=== PATIENT | female | born 1980 | race African-American/Black ===

== ENCOUNTER 2023-03-22 17:46 | Emergency (ER) | payer BC, SELFPAY ==
[2023-03-22] VITALS (11 sets, daily range): BP systolic 133–153; BP diastolic 74–101; PULSE 80–89; RESP 18–20; TEMP 36–36.1; O2SAT 98–100
--- NOTE | ~2023-03-22 | CT_ITS ---
EXAMINATION: CT diagnostic chest w con DATE: 03/22/2023 21:15 INDICATION: 2 cm nodular opacity left upper lung zone on CXR TECHNIQUE: Computed tomography (CT) of the chest was performed with 100 mL Omnipaque-350 intravenous contrast. Additional 3D reconstructions utilizing coronal maximum intensity projection (MIP) were per formed. Automated exposure control and iterative reconstruction technique were employed. The dose-america gth product was 781.28 mGy-cm. COMPARISON: None FINDINGS: 2.3 x 2.0 cm spiculated nodule at the apical segment of the left upper lobe nodule. A small contrast enhanced pulmonary vessel traverses without evident architectural distortion through the center of th e nodule which would argue against metastatic disease. There are additional smaller nodular opacities in the posterior left upper lobe, in the infrahilar left lower lobe, in the right middle lobe and at the posterior sulcus of the right lower lobe. There is bilateral hilar lymphadenopathy and more prom inent mediastinal lymphadenopathy, the largest a 3.2 x 2.2 cm lymph node at the AP window and a 4.5 x 2.9 cm conglomeration of subcarinal lymph nodes. While potentially reactive the size of these lymph nodes also raises the possibility of lymphoma, malignancy with metastatic disease or sarcoidosis. No pleural effusion. Heart size is normal. No pericardial effusion. Thoracic aorta is normal in caliber with no dissection. There is periportal lymphadenopathy. Visualized upper abdomen is otherwise unrema rkable. Mild thoracic spondylosis. IMPRESSION: 1. Multiple pulmonary nodules, the largest at the left apex corresponding to the nodule identified on prior chest radiograph but with multiple additional smaller nodules in the left upper, left lower, r ight lower and right middle lobes. There is also bilateral hilar, mediastinal and periportal lymphade nopathy, particularly in the mediastinum larger than would typically be seen with reactive lymphadeno samantha. Differential would include lymphoma, sarcoidosis, pneumonia or other metastatic disease. Reviewed, dictated and finalized at location A. ONETTE PERFORMER IMPRESSION: 1. Multiple pulmonary nodules, the largest at the left apex corresponding to th e nodule identified on prior chest radiograph but with multiple additional smal ler nodules in the left upper, left lower, right lower and right middle lobes. There is also bilateral hilar, mediastinal and periportal lymphadenopathy, part icularly in the mediastinum larger than would typically be seen with reactive l ymphadenopathy. Differential would include lymphoma, sarcoidosis, pneumonia or other metastatic disease.
--- NOTE | ~2023-03-22 | XR_ITS ---
EXAMINATION: XR chest 2V DATE: 03/22/2023 19:51 INDICATION: Shortness of breath TECHNIQUE: PA and lateral views of the chest were obtained. COMPARISON: None FINDINGS: Subtle approximately 2 cm nodular opacity at the left upper lung zone. No other airspace opacities, p ulmonary edema, pleural effusion or pneumothorax. The cardiomediastinal silhouette is normal. Mild th oracic spondylosis. IMPRESSION: 1. Indeterminate 2 cm nodular opacity left upper lung zone. Recommend chest CT for further evaluation . Reviewed, dictated and finalized at location A. [employer] IMPRESSION: 1. Indeterminate 2 cm nodular opacity left upper lung zone. Recommend chest CT for further evaluation.
--- NOTE | 2023-03-22 17:48 | ECG_ITS ---
Measurements Intervals [place] Rate: 80 P: 29 [place]: 197 QRS: 44 QRSD: 92 T: 28 QT: 363 QTc: 420 Interpretive Statements SINUS RHYTHM BASELINE ARTIFACT NORMAL ECG NO PREVIOUS ECG AVAILABLE FOR COMPARISON Electronically Signed On 03-23-2023 13:54:58 DIGITAL CAMPAIGN SPECIALIST by Trace Ng M.D.
[2023-03-22 19:59] LABS: Basophils Percent Auto 0.6 % (0.2-1.2); Eosinophils Absolute Auto 0.5 K/mm3 (0-0.3); Hematocrit 38.2 % (37.0-47.0); Hemoglobin 12.2 g/dL (12.0-15.0); Immature Granulocyte Absolute 0.02 K/mm3 (0.00-0.031); Immature Granulocyte Percent A 0.4 % (0-0.5); Lymphocytes Absolute Auto 1.24 K/mm3 (0.9-3.2); Lymphocytes Percent Auto 24.3 % (18.3-44.2); Mean Corpuscular HGB Conc 31.9 g/dl (32-36); Mean Corpuscular Hemoglobin 26.6 pg (26-34); Mean Corpuscular Volume 83.4 fl (80-100); Mean Platelet Volume 10.5 fl (7.4-10.4); Monocytes Absolute Auto 0.3 K/mm3 (0.1-0.6); Monocytes Percent Auto 6.1 % (2.6-8.5); Neutrophils Percent Auto 59.6 % (45.5-73.1); Platelet Count Result 302 k/mm3 (150-375); Red Blood Count 4.58 M/mm3 (4.2-5.4); Red Cell Distribution Width 14.6 % (11.5-14.5); White Blood Count 5.1 K/mm3 (4.5-10.0)
[2023-03-22 20:11] LABS: Alanine Aminotransferase 26 U/L (6-35); Albumin Level 4.1 g/dL (3.5-5.1); Alkaline Phosphatase 94 U/L (38-126); Anion Gap 11 mmol/L (8-16); Aspartate Amino Transferase 27 U/L (14-36); Bilirubin,Total 0.5 mg/dL (0.2-1.3); Blood Urea Nitrogen 8 mg/dL (7-17); Calcium 9.1 mg/dL (8.4-10.2); Carbon Dioxide 23 mmol/L (22-30); Chloride 104 mmol/L (98-107); Estimated CRCL calculation 115 ml/min; Estimated Glomerular Filt Rate > 60; Glucose 93 mg/dL (65-110); Potassium 3.3 mmol/L (3.4-5.0); Sodium 138 mmol/L (137-145)
--- NOTE | 2023-03-22 20:46 | ED.SOB ---
HPI - SOB/Dyspnea General Chief Complaint: Shortness of Breath/Dyspnea Stated Complaint: SOB Time Seen by Provider: 03/22/23 20:28 Source: patient Limitations: no limitations History of Present Illness HPI Narrative: This is a 43 yo female with PMH asthma who presents with complaint of shortness of breath. She states this has been persistent both with exertion and at rest since being diagnosed with a pneumonia on 02/10/23. This was the same day as she received her flu vaccine. Pneumonia diagnosis was reportedly clinical based on history and physical exam, not by chest xray. She completed a course of azithromycin but continues to have shortness of breath and a cough. She states it is productive of yellow mucous but otherwise denies hemoptysis or fever. She has been using nebulized albuterol /ipratropium treatments. She states she has had 4 episodes of pneumonia, one of which was related to covid. For this, she sees a customs opener verifier packer (Delonte Montero) and a medical research associate (Guadalupe). She is on an antihypertensive that contains a diuretic. Not on hormones but does have a coppre Paraguard in place. No recent travel or surgeries. No unilateral lower extremity swelling. Related Data Allergies Allergy/AdvReac Type Severity Reaction Status Date / Time No Known Allergies Allergy Verified 03/22/23 22:07 [facility] Past Medical History Medical History (Updated 03/23/23 @ 00:30 by Annemarie Max MD) COVID Hypertension Influenza vaccination given 02/10/23 Pneumonia Social History Social History (Updated 03/23/23 @ 00:30 by Annemarie Max MD) Smoking status: Former smoker Exam Const: General: healthy appearing, no acute distress and alert; No confusion, diaphoretic or ill appearing Nutritional Appearance: well nourished and obese Orientation/consciousness: patient oriented x3 Limitations: no limitations HENMT: Head: normal to inspection, no contusions, no hematomas and no lacerations Other: gross auditory acuity intact ; no lupus pernio or other facial rash Eyes: Conjunctivae: conjunctivae normal Direct Ophthalmoscopy: no photophobia Neck: Neck: normal visual inspection Chest: Chest palpation & inspection: normal inspection of the chest and no tenderness Resp: Effort & Inspection: normal respiratory effort, not labored, no retractions, not tachypneic and no use of accessory muscles Auscultation: clear to auscultation bilaterally, no crackles, no rales, no rhonchi and no wheezes Other: good air movement throughout all lung andrew; frequently coughing with deep inspiration but no wheezes appreciated during cough episodes either Cardio: Rate: regular rate, not bradycardic and not tachycardic Rhythm: regular rhythm Heart sounds: no murmurs GI: Inspection: non-distended GI Palp: Yes Soft to palpation, No Tenderness to palpation present (GI) and No Guarding due to palpation present (GI) Skin: General skin exam: normal color, no jaundice and no pallor Neuro: General: patient oriented x3, moves all extremities, no meningeal signs and no focal motor deficits Speech: normal speech Extrem: General: normal to inspection Other: trace bilateral lower extremity edema but legs grossly symmetric; no nodules on palpation of b/l LEs Psych: Mental Status: mental status grossly normal Affect: normal affect Attitude: cooperative Course Vital Signs Vital signs: Vital Signs Temperature 97 F L 03/22/23 17:48 Pulse Rate 89 03/22/23 17:48 Respiratory Rate 20 03/22/23 17:48 Blood Pressure 148/82 H 03/22/23 17:48 Pulse Oximetry 100 03/22/23 17:48 Oxygen Delivery Room Air 03/22/23 17:48 Temperature 96.8 F L 03/22/23 19:45 Pulse Rate 80 03/22/23 20:39 Respiratory Rate 18 03/22/23 20:40 Blood Pressure 143/74 H 03/22/23 21:01 Pulse Oximetry 100 03/22/23 21:01 Oxygen Delivery Room Air 03/22/23 20:38 MDM - SOB/Dyspnea MDM Narrative Medical decision making narrativ
[2023-03-22 21:53] LABS: Influenza A QL RT-PCR Negative (Negative); Influenza B QL RT-PCR Negative (Negative); SARS-CoV-2 RNA PCR Negative (Negative)
[2023-03-22] MEDS: POTASSIUM PHOS/SODIUM PHOS 250 MG TABLET PO (22:40)
== END 2023-03-22 22:50 | disposition home or self-care (01) ==
PROVIDERS: Emergency Provider Student in an Organized Health Care Education/Training Program
DX: R05.3 Chronic cough (principal); E87.6 Hypokalemia; Z20.822 Contact with and (suspected) exposure to COVID-19; J45.909 Unspecified asthma, uncomplicated; I10 Essential (primary) hypertension; Z87.891 Personal history of nicotine dependence; Z86.16 Personal history of COVID-19; Z87.01 Personal history of pneumonia (recurrent); R91.8 Other nonspecific abnormal finding of lung field
CPT/HCPCS: 36415; 71046; 71260; 80053; 85025; 87636; 93005; 99284; A9270; Q9967

== ENCOUNTER 2024-03-17 08:02 | Emergency (ER) | payer BC, SELFPAY ==
[2024-03-17 08:27] VITALS: BP 139/91; PULSE 86; RESP 18; TEMP 36.8; O2SAT 97
[2024-03-17 08:31] VITALS: BP 145/104; PULSE 77; RESP 20; O2SAT 96
[2024-03-17 08:46] VITALS: BP 144/82; PULSE 78; RESP 18; O2SAT 100
[2024-03-17 09:31] VITALS: BP 142/104; PULSE 83; RESP 18; O2SAT 98
--- NOTE | 2024-03-17 09:53 | ECG_ITS ---
Test Date: 2024-03-17 10:13:29 Measurements Intervals [place] Rate: 81 P: 27 HI: 187 QRS: 15 QRSD: 85 T: 20 QT: 354 QTc: 413 Interpretive Statements SINUS RHYTHM POSSIBLE ANTERIOR MYOCARDIAL INFARCTION , PROBABLY OLD CONSIDER INFERIOR INFARCT, AGE INDETERMINATE BORDERLINE ST ABNORMALITY- LATERAL LEADS ABNORMAL ECG No previous ECG available for comparison Electronically Signed On 03-17-2024 12:00:32 VITICULTURIST by Anup Emerson D.O.
--- NOTE | 2024-03-17 10:00 | ED.HA ---
HPI - Headache General Chief Complaint: Headache Stated Complaint: headache Time Seen by Provider: 03/17/24 08:55 History of Present Illness HPI Narrative: Patient is a 44-year-old female who presents to the ER with a headache that started about a week ago. 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 Patient went to [place] [facility] a couple days ago where they did a head CT. The provider at the ER told her it was normal. She reports the headache continues. It feels like pulsating on the top of my head and travels down the sides. Patient reports she is experiencing fluid shifts and popping in her ears. She reports she has been taking a decongestant for the last 2 days, which has given her some relief. When she talked to her primary care provider this morning they advised her to come in for evaluation to make sure the sarcoidosis has not traveled to her head. Patient endorses a history of congestive failure and high blood pressure. She denies any history of seasonal allergies, recent fevers, other signs/symptoms of illness. Related Data Allergies Allergy/AdvReac Type Severity Reaction Status Date / Time lisinopril Allergy Swelling Verified 03/17/24 08:35 nifedipine Allergy Swelling Verified 03/17/24 08:35 Review of Systems Review of Systems: All systems reviewed & are unremarkable except as noted in HPI and below PMFSH Past Medical History Medical History COVID Hypertension Influenza vaccination given 02/10/23 Pneumonia Social History Social History Smoking status: Former smoker Exam Narrative: GENERAL: Well appearing, well-nourished, non-toxic, in no acute distress. HEAD: Normocephalic, atraumatic. Red, swollen nasal turbinates, no excessive drainage or mucous. NECK: Supple. No adenopathy, no masses. RESPIRATORY: Airway patent, respirations nonlabored. Clear to auscultation bilaterally, no rales, rhonchi, wheezing. CARDIOVASCULAR: Regular rate and rhythm without murmurs, rubs, or gallops. Peripheral pulses 2+ and equal bilaterally. ABDOMINAL: Soft, nontender, nondistended, no hepatosplenomegaly. Normoactive BS. MUSCULOSKELETAL: Moves all extremities. Strength/ROM intact without gross deformities. SKIN: Warm, dry, normal color. No rashes. NEURO: A&O X3. Speech clear. Cranial nerves II-XII grossly intact. No ataxic movements. PSYCHIATRIC: Appropriate mood and affect. Normal interaction. Course Vital Signs Vital signs: Vital Signs Temperature 36.8 C 03/17/24 08:27 Pulse Rate 86 03/17/24 08:27 Respiratory Rate 18 03/17/24 08:27 Blood Pressure 139/91 H 03/17/24 08:27 Pulse Oximetry 97 03/17/24 08:27 Oxygen Delivery Room Air 03/17/24 08:27 Temperature 36.8 C 03/17/24 08:27 Pulse Rate 83 03/17/24 09:31 Respiratory Rate 18 03/17/24 09:31 Blood Pressure 142/104 H 03/17/24 09:31 Pulse Oximetry 98 03/17/24 09:31 Oxygen Delivery Room Air 03/17/24 08:27 MDM - Headache MDM Narrative Medical decision making narrative: Patient is a 44-year-old female who presents to the ER with a headache that started about a week ago. 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 Patient went to [place] [facility] a couple days ago where they did a head CT. The provider at the ER told her it was normal. She reports the headache continues. It feels like pulsating on the top of my head and travels down the sides. Patient reports she is experiencing fluid shifts and popping in her ears. She reports she has been taking a decongestant for the last 2 days, which has given her some relief. When she talked to her primary care provider this morning they advised her to come in for evaluation to make sure the sarcoidosis has not traveled to her head. Patient endorses a history of congestive failure and high blood pressure. She denies any history of seasonal allergies, recent fevers, other signs/symptoms of illness. 1140- Spoke with patient's primary care provider knows patient well. She reports she will try to see patient in her office this week. PCP reports she is not passing patient's right dose needs to be increased this time. She reports if we deem it necessary we can put pt on an abx for a sinus infection. otherwise she has no recommendations for changes in plan of care at this time. Labs Ordered: CBC, CMP Imaging Ordered: None, as pt had a head CT within the past week Results: All bloodwork results were unremarkable besides mild dehydration, 1L NS IV bolus given Diagnosis: headache, sinus infection Consults: PCP Patient Education/Shared MDM: Results of blood work shared patient. Patient reports relief of symptoms after Toradol, NS bolus, and Solu-Medrol administration. Plan to treat patient outpatient for a sinus infection per her request. Patient should follow-up with her primary care provider this week. No adjustments will be made to patient's baseline steroid use. Patient and her family verbalized understanding and are in agreement with plan for discharge home. Differential Diagnosis Differential diagnosis: Likely migraine, tension headache, subarachnoid hemorrhage, headache and sinusitis Lab Data Attestation: I reviewed the patient's lab results. 03/17/24 10:46 03/17/24 10:46 Labs: Lab Results 03/17/24 Range/Units 10:46 WBC 9.5 (4.5-10.0) K/mm3 RBC 5.08 (4.2-5.4) M/mm3 Hgb 13.4 (12.0-15.0) g/dL Hct 42.6 (37.0-47.0) % MCV 83.9 (80-100) fl MCH 26.4 (26-34) pg MCHC 31.5 L (32-36) g/dl RDW 12.9 (11.5-14.5) % Plt Count 288 (150-375) k/mm3 MPV 10.7 H (7.4-10.4) fl Immature Gran % (Auto) 0.4 (0-0.5) % Neut % (Auto) 77.5 H (45.5-73.1) % Lymph % (Auto) 16.7 L (18.3-44.2) % [place] % (Auto) 4.3 (2.6-8.5) % Eos % (Auto) 0.7 (0-4.4) % Baso % (Auto) 0.4 (0.2-1.2) % Lymph # (Auto) 1.59 (0.9-3.2) K/mm3 [place] # (Auto) 0.4 (0.1-0.6) K/mm3 Eos # (Auto) 0.1 (0-0.3) K/mm3 Baso # (Auto) 0.0 (0.0-0.1) K/mm3 Abs Immat Gran (auto) 0.04 H (0.00-0.031) K/mm3 Absolute Neuts (auto) 7.4 H (1.3-6.7) K/mm3 Absolute Nucleated RBC 0.000 (0.0-0.012) K/mm3 Nucleated RBC % 0.0 (0.0-0.2) % Sodium 136 L (137-145) mmol/L Potassium 4.3 (3.4-5.0) mmol/L Chloride 107 (98-107) mmol/L Carbon Dioxide 22 (22-30) mmol/L Anion Gap 7 (4-12) mmol/L BUN 10 (7-17) mg/dL Creatinine 0.70 (0.7-1.0) mg/dL Estim Creat Clear Calc 122 ml/min Estimated GFR > 60 (59 - ) Glucose 117 H (65-110) mg/dL Calcium 8.9 (8.4-10.2) mg/dL Total Bilirubin 0.8 (0.2-1.3) mg/dL AST 25 (14-36) U/L ALT 19 (6-35) U/L Alkaline Phosphatase 75 (38-126) U/L Total Protein 9.0 H (6.3-8.2) g/dL Albumin 4.1 (3.5-5.1) g/dL Discharge Plan Discharge Clinical Impression: Headache, Sinusitis Patient Disposition: Home, Self-Care Condition: Stable Instructions: Antibiotic Form, Sinusitis (ED), Acute Headache (ED) Additional Instructions: Please follow-up with your primary care provider soon as possible as discussed. Take all medications as prescribed. Please return to the ER with any worsening symptoms. Prescriptions: New doxycycline monohydrate 100 mg capsule 100 mg PO BID Qty: 14 0RF No Action guaifenesin 100 mg/5 mL liquid 200 mg PO QHS PRN (Reason: cough) Qty: 473 0RF Follow-up/Referrals: PHYSICIAN NOT ON STAFF,NONSTAFF [Non-Staff] - Time of Disposition: 12:47
[2024-03-17 10:51] LABS: Basophils Percent Auto 0.4 % (0.2-1.2); Eosinophils Absolute Auto 0.1 K/mm3 (0-0.3); Eosinophils Percent Auto 0.7 % (0-4.4); Hematocrit 42.6 % (37.0-47.0); Hemoglobin 13.4 g/dL (12.0-15.0); Immature Granulocyte Absolute 0.04 K/mm3 (0.00-0.031); Immature Granulocyte Percent A 0.4 % (0-0.5); Lymphocytes Absolute Auto 1.59 K/mm3 (0.9-3.2); Lymphocytes Percent Auto 16.7 % (18.3-44.2); Mean Corpuscular HGB Conc 31.5 g/dl (32-36); Mean Corpuscular Hemoglobin 26.4 pg (26-34); Mean Corpuscular Volume 83.9 fl (80-100); Mean Platelet Volume 10.7 fl (7.4-10.4); Monocytes Absolute Auto 0.4 K/mm3 (0.1-0.6); Monocytes Percent Auto 4.3 % (2.6-8.5); Neutrophils Absolute Auto 7.4 K/mm3 (1.3-6.7); Neutrophils Percent Auto 77.5 % (45.5-73.1); Platelet Count Result 288 k/mm3 (150-375); Red Blood Count 5.08 M/mm3 (4.2-5.4); Red Cell Distribution Width 12.9 % (11.5-14.5); White Blood Count 9.5 K/mm3 (4.5-10.0)
[2024-03-17 11:00] LABS: Alanine Aminotransferase 19 U/L (6-35); Albumin Level 4.1 g/dL (3.5-5.1); Alkaline Phosphatase 75 U/L (38-126); Anion Gap 7 mmol/L (4-12); Aspartate Amino Transferase 25 U/L (14-36); Bilirubin,Total 0.8 mg/dL (0.2-1.3); Blood Urea Nitrogen 10 mg/dL (7-17); Calcium 8.9 mg/dL (8.4-10.2); Carbon Dioxide 22 mmol/L (22-30); Chloride 107 mmol/L (98-107); Estimated CRCL calculation 122 ml/min; Estimated Glomerular Filt Rate > 60; Glucose 117 mg/dL (65-110); Potassium 4.3 mmol/L (3.4-5.0); Sodium 136 mmol/L (137-145)
[2024-03-17] MEDS: diphenhydrAMINE HCl INJ 50 MG/ML VIAL 25 MG IV PUSH (11:13)
[2024-03-17] MEDS: SODIUM CHLORIDE 0.9% IV 1,000 ML 500 ML IV CONT (11:13)
[2024-03-17] MEDS: methylPREDNISolone SOD SUCC 125 MG VIAL IV PUSH (11:14)
[2024-03-17] MEDS: FAMOTIDINE 20 MG/2 ML VIAL IV PUSH (11:14)
[2024-03-17] MEDS: KETOROLAC 15 MG/ML VIAL (*BKC) IV PUSH (11:21)
[2024-03-17 13:21] VITALS: BP 180/98; PULSE 94; RESP 18; TEMP 37.1; O2SAT 100
== END 2024-03-17 13:25 | disposition home or self-care (01) ==
PROVIDERS: Emergency Provider Registered Nurse
DX: J32.9 Chronic sinusitis, unspecified (principal); R51.9 Headache, unspecified; I10 Essential (primary) hypertension; D86.89 Sarcoidosis of other sites; Z86.16 Personal history of COVID-19; Z87.01 Personal history of pneumonia (recurrent); R94.31 Abnormal electrocardiogram [ECG] [EKG]
CPT/HCPCS: 36415; 80053; 85025; 93005; 96361; 96374; 96375; 99284; J1200; J1885; J2919; J7030